=== PATIENT | female | born 1980 | race Caucasian/White ===

== ENCOUNTER 2016-06-12 07:39 | Emergency (ER) | payer OTHER ==
[~2016-06-12 07:39] MED LIST: ALBUTEROL17 GM INH; ALEVE; ALKA-SELTZER P1 EAC1; BACTRIM DS TABL1 TA1 PO; BENZONATATE PO; KEFLEX500 MG PO; MEDROL PO; MUCINEX PO; NO MEDICATIONS; NORCO 5/325 TAB1 TAB PO; PREDNISONE PO; TYLENOL #3 PO; VICKS PO; ZOVIRAX800 MG PO
== END 2016-06-12 08:00 | disposition home or self-care (01) ==
LOC: SED 07:39
DX: J32.9 Chronic sinusitis, unspecified (principal); Z90.49 Acquired absence of other specified parts of digestive tract; Z88.8 Allergy status to other drugs, medicaments and biological substances; F17.210 Nicotine dependence, cigarettes, uncomplicated
CPT/HCPCS: 99282